=== PATIENT | female | born 1975 | race Caucasian/White ===

== ENCOUNTER 2017-11-22 09:25 | Emergency (ER) | payer BC ==
[2017-11-22 09:35] VITALS: BP 181/90; BMI 38.4
--- NOTE | 2017-11-22 09:51 | DR.GENAD ---
HPI - PCP Primary Care Physician: rosio - HPI Comment HPI Comment: WORSE ONE WEEK STARTED GETTING WORSR. ON BP MED. TOOK BP MED THIS AM. NO FEVER. - Complaint/Symptoms Chief Complaint Doctors Comments: CHEST PAIN AND ELEVATED BP TIMES 2 MONTHS ON AND OFF. Chief Complaint:: patient stated she has been having high blood pressure and chest wall discomfort for two months, but the last week its has gotton worse - Nurses notes reviewed Nurses Notes Review: Yes - Source History Provided: Patient - Mode of Arrival Mode of Arrival: Ambulatory - Timing Onset of Chief Complaint: 10/03/17 - Duration Duration: Constant Duration: Days - Severity Severity: Moderate PMH - PMH Past Medical History: Yes Past Medical History: Hypertension Past Medical History Comment: chronic neck pain Past Surgical History: Yes Surgical History: , INSOLE FILLER Surgery, Ortho Surgery - Family History History of Family Medical Conditions: Yes Family Medical History: MA, Hypertension - Social History Does patient currently use any type of tobacco product: No Have you used tobacco products in the last 12 months: No Type of Tobacco Use: None Does any household member use tobacco: No Alcohol Use: None Do you use any recreational Drugs:: No Lives With: Family Lives Where: Home - infectious screening In the last 2 months have you had wt loss of >10#?: NO Have you had fever, night sweats or hemotysis?: No Have you traveled outside the country in the last 6 months?: No Isolation: Standard ROS - Review of Systems Constitutional: No Symptoms Reported Eyes: No Symptoms Reported ENTM: No Symptoms Reported Respiratoy: No Symptoms Reported Cardiovascular: Chest Pain, Other (ELEVATED BP.) Gastrointestinal/Abdominal: No Symptoms Reported Genitourinary: No Symptoms Reported Neurological: No Symptoms Reported Musculoskeletal: No Symptoms Reported Integumentary: No Symptoms Reported Hematologic/Lymphatic: No Symptoms Reported Endocrine: No Symptoms Reported All Other Systems: Reviewed and Negative PE - Vital Signs Vitals: Temperature 97.9 F Pulse Rate 103 Respiratory Rate 16 Blood Pressure 181/90 O2 Sat by Pulse Oximetry 100 - General Limitations: No Limitations General Appearance: Alert - Head Head Exam: Normal Inspection - Eyes Eye exam: Normal Appearance - ENT ENT Exam: Normal External Ear Exam External Ear Exam: Normal External Inspection TM/Canal Exam: Bilateral Normal Nose Exam: Normal Nose Exam Mouth Exam: Normal Inspection Throat Exam: Normal Inspection - Neck Neck Exam: Normal Inspection - Chest Chest Inspection: Symmetric Chest Wall Rise - Respiratory Respiratory Exam: Normal Lung Sounds Bilat Respiratory Exam: Bilateral Clear to Auscultation - Cardiovascular Cardiovascular Exam: Regular Rate, Normal Rhythm, Normal Heart Sounds - Abdominal Exam Abdominal Exam: Normal Bowel Sounds, Soft. negative: Tenderness - Extremities Extremities Exam: Normal Inspection - Back Back Exam: Normal Inspection - Neurologic Neurological Exam: Alert, Oriented X3 - Psychiatric Psychiatric Exam: Normal Affect, Normal Mood - Skin Skin Exam: Normal Color MDM - Differential Diagnosis Differential Diagnosis: CHEST PAIN, HYPERTENSION Course - Treatment Treatment: SEE ORDERS - Education/Counseling Education/Counseling: Patient, Education Educated On: Diagnosis, Needs for Follow Up ROR - Labs Reviewed Result Diagrams: 11/22/17 10:01 11/22/17 10:01 Laboratory: WBC 7.7 X10^3/uL (3.6-10.0) 11/22/17 10:01 RBC 4.54 X10^6/uL (3.5-5.4) 11/22/17 10:01 Hgb 13.2 g/dL (12.0-16.0) 11/22/17 10:01 Hct 38.5 % (36.0-47.0) 11/22/17 10:01 MCV 84.7 fL (80.0-100.0) 11/22/17 10:01 MCH 28.9 pg (27.0-34.0) 11/22/17 10:01 MCHC 34.2 g/dL (33.0-35.0) 11/22/17 10:01 RDW 13.3 % (11.6-16.5) 11/22/17 10:01 Plt Count 327 X10^3/uL (150.0-450.0) 11/22/17 10:01 MPV 7.2 fL (7.4-11.0) L 11/22/17 10:01 Neut % 65.5 % (42.0-75.0) 11/22/17 10:01 Lymph % 25.9 % (21.0-51.0) 11/22/17 10:01 Meriwether % 6.7 % (0.0-13.0) 11/22/17 10:01 Eos % 1.0 % (0.9-2.9) 11/22/17 10:01 Baso % 0.9 % (0.2-1.0) 11/22/17 10:01 Neut # 5.0 x10^3/uL (2.2-4.8) H 11/22/17 10:01 Lymph # 2.0 X10^3/uL (1.3-2.9) 11/22/17 10:01 Meriwether # 0.5 x10^3/uL (0.3-0.8) 11/22/17 10:01 Eos # 0.1 x10^3/uL (0.0-0.2) 11/22/17 10:01 Baso # 0.1 X10^3/uL (0.0-0.1) 11/22/17 10:01 Absolute Nucleated RBC 0.0 /100WBC 11/22/17 10:01 INR Target Range - 11/22/17 10:01 INR 0.99 (0.8-1.3) 11/22/17 10:01 PTT 26.7 SECONDS (22.9-36.5) 11/22/17 10:01 PTT Comment - 11/22/17 10:01 D-Dimer 331 ng/mL (0-400) 11/22/17 10:01 Sodium 138 mmol/L (136-145) 11/22/17 10:01 Corrected Sodium TNP 11/22/17 10:01 Potassium 3.6 mmol/L (3.5-5.1) 11/22/17 10:01 Chloride 102 mmol/L (98-107) 11/22/17 10:01 Carbon Dioxide 27.9 mmol/L (21-32) 11/22/17 10:01 BUN 14 mg/dL (7-18) 11/22/17 10:01 Creatinine 0.74 mg/dL (0.55-1.02) 11/22/17 10:01 Est GFR (MDRD) Af Amer > 60 (>60) 11/22/17 10:01 Est GFR (MDRD) Non-Af > 60 (>60) 11/22/17 10:01 Glucose 101 mg/dL (65-99) H 11/22/17 10:01 Calcium 9.0 mg/dL (8.5-10.1) 11/22/17 10:01 Corrected Calcium TNP 11/22/17 10:01 Magnesium 1.9 mg/dL (1.7-2.9) 11/22/17 10:01 Total Bilirubin 0.40 mg/dL (0.2-1.0) 11/22/17 10:01 AST 21 Units/L (15-37) 11/22/17 10:01 ALT 38 Units/L (12-78) 11/22/17 10:01 Alkaline Phosphatase 121 Units/L (46-116) H 11/22/17 10:01 Creatine Kinase 87 Units/L (26-192) 11/22/17 10:01 CK-MB (CK-2) 1.7 ng/mL (0-4.0) 11/22/17 10:01 CK/CKMB % Calc 2.0 % (<4) 11/22/17 10:01 Troponin I < 0.02 ng/mL (0-1.5) 11/22/17 10:01 Total Protein 7.9 g/dL (6.4-8.2) 11/22/17 10:01 Albumin 3.7 g/dL (3.4-5.0) 11/22/17 10:01 Globulin 4.2 g/dL (2.5-4.5) 11/22/17 10:01 Albumin/Globulin Ratio 0.9 Ratio (1.1-2.1) L 11/22/17 10:01 - XRAY XRAY Interpreted by: Radiologist XRAY Findings: REPORT DISCUSS WITH PATIENT. - EKG Rhythm: NSR (EKG NOTED) - Diagnosis Discharge Problem: Chest pain Qualifiers: Chest pain type: precordial pain Qualified Code(s): R07.2 - Precordial pain Hypertension Qualifiers: Hypertension type: essential hypertension Qualified Code(s): I10 - Essential ( primary) hypertension - Discharge Plan Condition: Stable Prescriptions: Ibuprofen [MOTRIN TAB 600 MG *] 600 mg PO TID PRN #30 tab PRN Reason: Pain/Inflammation Ranitidine HCl [ZANTAC TAB 150 MG *] 150 mg PO BID #20 tab - Follow ups/Referrals Follow ups/Referrals: Aristides Lloyd [Primary Care Provider] - 3 days - Instructions Instructions: Hypertension, [id number], Chest Pain Observation Additional Instructions: RETURN TO ED IF WORSE.
[2017-11-22 10:10] LABS: BASOPHILS # (AUTO) 0.1 X10^3/uL (0.0-0.1); BASOPHILS % (AUTO) 0.9 % (0.2-1.0); EOSINOPHILS # (AUTO) 0.1 x10^3/uL (0.0-0.2); HEMATOCRIT 38.5 % (36.0-47.0); HEMOGLOBIN 13.2 g/dL (12.0-16.0); LYMPHOCYTES % (AUTO) 25.9 % (21.0-51.0); MEAN CORPUSCULAR HEMOGLOBIN 28.9 pg (27.0-34.0); MEAN CORPUSCULAR HGB CONC 34.2 g/dL (33.0-35.0); MEAN CORPUSCULAR VOLUME 84.7 fL (80.0-100.0); MEAN PLATELET VOLUME 7.2 fL (7.4-11.0); MONOCYTES # (AUTO) 0.5 x10^3/uL (0.3-0.8); MONOCYTES % (AUTO) 6.7 % (0.0-13.0); NEUTROPHILS % (AUTO) 65.5 % (42.0-75.0); PLATELET COUNT 327 X10^3/uL (150.0-450.0); RED BLOOD COUNT 4.54 X10^6/uL (3.5-5.4); RED CELL DISTRIBUTION WIDTH 13.3 % (11.6-16.5); WHITE BLOOD COUNT 7.7 X10^3/uL (3.6-10.0)
[2017-11-22 10:30] LABS: BLOOD UREA NITROGEN 14 mg/dL (7-18); CARBON DIOXIDE 27.9 mmol/L (21-32); CHLORIDE 102 mmol/L (98-107); CREATININE 0.74 mg/dL (0.55-1.02); SODIUM 138 mmol/L (136-145); TROPONIN I < 0.02 ng/mL (0-1.5); eGFR BLACK RACES > 60 (>60); eGFR NON BLACK RACES > 60 (>60)
[2017-11-22 10:35] LABS: ALANINE AMINOTRANSFERASE 38 Units/L (12-78); ALBUMIN 3.7 g/dL (3.4-5.0); ALKALINE PHOSPHATASE 121 Units/L (46-116); ASPARTATE AMINO TRANSFERASE 21 Units/L (15-37); CREATINE KINASE 87 Units/L (26-192); CREATINE KINASE MB 1.7 ng/mL (0-4.0); MAGNESIUM 1.9 mg/dL (1.7-2.9); TOTAL PROTEIN 7.9 g/dL (6.4-8.2)
--- NOTE | 2017-11-22 10:44 | RAD ---
History: Chest pain and left arm numbness Study: Portable AP chest Comparison: None Findings: The lungs are clear and the heart and mediastinum are unremarkable. There is no edema or ef fusion or congestion. Impression: Negative Reported By:
== END 2017-11-22 11:37 | disposition home or self-care (01) ==
LOC: ER 09:38
DX: R07.2 Precordial pain (principal); I10 Essential (primary) hypertension
CPT/HCPCS: 36415; 71045; 80053; 82550; 82553; 83735; 84484; 85025; 85378; 85610; 85730; 86677; 93005; 93010; 99282; 99283

== ENCOUNTER 2021-08-08 10:44 | Observation (INO) ==
[2021-08-08] MEDS ORDERED: ZOFRAN INJ 4 MG VIAL IVP PRN (15:27)
[2021-08-08 16:31] LABS: BASOPHILS # (AUTO) 0.1 X10^3/uL (0.0-0.1); BASOPHILS % (AUTO) 0.4 % (0.2-1.0); EOSINOPHILS % (AUTO) 0.1 % (0.9-2.9); HEMATOCRIT 39.2 % (36.0-47.0); HEMOGLOBIN 13.2 g/dL (12.0-16.0); LYMPHOCYTES # (AUTO) 1.6 X10^3/uL (1.3-2.9); LYMPHOCYTES % (AUTO) 13.3 % (21.0-51.0); MEAN CORPUSCULAR HEMOGLOBIN 28.9 pg (27.0-34.0); MEAN CORPUSCULAR HGB CONC 33.6 g/dL (33.0-35.0); MEAN CORPUSCULAR VOLUME 86.1 fL (80.0-100.0); MEAN PLATELET VOLUME 7.8 fL (7.4-11.0); MONOCYTES # (AUTO) 0.8 x10^3/uL (0.3-0.8); MONOCYTES % (AUTO) 6.5 % (0.0-13.0); NEUTROPHILS # (AUTO) 9.6 x10^3/uL (2.2-4.8); NEUTROPHILS % (AUTO) 79.7 % (42.0-75.0); PLATELET COUNT 271 X10^3/uL (150.0-450.0); RED BLOOD COUNT 4.56 X10^6/uL (3.5-5.4)
[2021-08-08 16:36] LABS: ALANINE AMINOTRANSFERASE 23 Units/L (12-78); ALBUMIN 3.5 g/dL (3.4-5.0); ALKALINE PHOSPHATASE 131 Units/L (46-116); AMYLASE 29 Units/L (25-115); ASPARTATE AMINO TRANSFERASE 16 Units/L (15-37); BLOOD UREA NITROGEN 7 mg/dL (7-18); CALCIUM 8.7 mg/dL (8.5-10.1); CHLORIDE 102 mmol/L (98-107); CREATININE 0.83 mg/dL (0.55-1.02); LIPASE 40 Units/L (73-393); SODIUM 137 mmol/L (136-145); TOTAL PROTEIN 7.8 g/dL (6.4-8.2); eGFR NON BLACK RACES > 60 (>60)
[2021-08-08] MEDS: NS 1000 ML 1,000 ML IV SCH (16:50)
[2021-08-08] MEDS: LEVSIN/MAALOX/LIDOC VISC PO SCH ×3 (16:50→21:33)
[2021-08-08] MEDS: PEPCID 20 MG IV PREMIX* 20 MG/50 ML BAG IV SCH ×2 (16:51→21:27)
[2021-08-08] MEDS: PROTONIX INJ 40 MG VIAL IVP SCH ×2 (16:51→21:34)
[2021-08-08] MEDS: ZOSYN VIAL 3.375 GRAMS 3.375 G in NS 50 ML IV + SPIKE MINIBAG* 50 ML IV SCH ×2 (16:51→22:45)
[2021-08-08] MEDS ORDERED: RESTORIL CAP 15 MG PO ONE (21:56)
[2021-08-08] MEDS: RESTORIL CAP 15 MG PO PRN (22:02)
[2021-08-08] MEDS: DILAUDID INJ IVP PRN (22:14)
[2021-08-09 06:36] LABS: BASOPHILS % (AUTO) 0.3 % (0.2-1.0); EOSINOPHILS % (AUTO) 0.3 % (0.9-2.9); HEMATOCRIT 36.5 % (36.0-47.0); HEMOGLOBIN 12.2 g/dL (12.0-16.0); LYMPHOCYTES # (AUTO) 1.7 X10^3/uL (1.3-2.9); MEAN CORPUSCULAR HEMOGLOBIN 28.7 pg (27.0-34.0); MEAN CORPUSCULAR HGB CONC 33.4 g/dL (33.0-35.0); MONOCYTES # (AUTO) 0.8 x10^3/uL (0.3-0.8); MONOCYTES % (AUTO) 7.3 % (0.0-13.0); NEUTROPHILS # (AUTO) 8.9 x10^3/uL (2.2-4.8); NEUTROPHILS % (AUTO) 77.1 % (42.0-75.0); PLATELET COUNT 251 X10^3/uL (150.0-450.0); RED BLOOD COUNT 4.24 X10^6/uL (3.5-5.4); RED CELL DISTRIBUTION WIDTH 14.8 % (11.6-16.5); WHITE BLOOD COUNT 11.6 X10^3/uL (3.6-10.0)
[2021-08-09 07:01] LABS: ALANINE AMINOTRANSFERASE 19 Units/L (12-78); ALKALINE PHOSPHATASE 116 Units/L (46-116); ASPARTATE AMINO TRANSFERASE 14 Units/L (15-37); BLOOD UREA NITROGEN 7 mg/dL (7-18); CALCIUM 8.2 mg/dL (8.5-10.1); CARBON DIOXIDE 24.3 mmol/L (21-32); CHLORIDE 104 mmol/L (98-107); CREATININE 0.81 mg/dL (0.55-1.02); SODIUM 137 mmol/L (136-145); TOTAL PROTEIN 6.8 g/dL (6.4-8.2); eGFR NON BLACK RACES > 60 (>60)
[2021-08-09] MEDS: ZOSYN VIAL 3.375 GRAMS 3.375 G in NS 50 ML IV + SPIKE MINIBAG* 50 ML IV SCH ×3 (07:27→21:11)
[2021-08-09] MEDS: NS 1000 ML 1,000 ML IV SCH ×3 (07:27→16:30)
[2021-08-09] MEDS: DILAUDID INJ IVP PRN ×4 (07:27→23:30)
[2021-08-09] MEDS: LEVSIN/MAALOX/LIDOC VISC PO SCH ×4 (09:02→20:40)
[2021-08-09] MEDS: PEPCID 20 MG IV PREMIX* 20 MG/50 ML BAG IV SCH ×2 (09:02→20:41)
[2021-08-09] MEDS: PROTONIX INJ 40 MG VIAL IVP SCH ×2 (09:03→20:41)
--- NOTE | 2021-08-09 11:32 | DR.UPDATE ---
H&P Update History and Physical Update: History and Physical reviewed and patient examined. Changes noted: Yes with the following: IS A 46 YEAR OLD PATIENT OF OURS. SHE PRESENTED TO THE OFFICE WITH COMPLAINTS OF DIFFUSE ABDOMINAL PAIN. PATIENT REPORTS THAT PAIN BEGAIN IN THE LOWER ABDOMEN AND RADIATED TO THE LEFT FLANK AND LOWER BACK. ON 08/06, PATIENT BEGAN TO HAVE PAIN TO THE EPIGASTRIC ARE AND RUQ. PAIN STARTED ABOUT A MONTH PRIOR. PAIN IS USUALLY WORSE AFTER EATING. PATIENT ALSO ADMITS TO NAUSEA AND VOMITING. PATIENT REPORTS THAT THERE IS NOTHING THAT REALLY ALLEVIATES THE PAIN. ON EXAMINATION, PATIENT RATED PAIN A 6/10. IT IS DESCRIBED CONSTANT, SHARP, AND STABBING. SHE WAS PRESCRIBED PERCOCET AND BENTYL ON HER LAST VISIT, BUT DENIED IMPROVEMENT IN SYMPTOMS DESPITE COMPLIANCE WITH MEDICATIONS. PATIENT WAS ADMITTED TO THE HOSPITAL FOR FURTHER EVALUATION AND TREATMENT OF INTRACTABLE ABDOMINAL PAIN AND NAUSEA/VOMITING. ON ARRIVAL TO THE HOSPITAL, VITALS WERE 98.0-85-20-99%-127/65. LABS WERE OBTAINED. ABNORMAL LAB VALUES INCLUDED THE FOLLOWING: WBC 12.0, ALK PHOS 131, LIPASE 40. COVID-19 NEGATIVE. SHE WAS STARTED ON NORMAL SALINE AT 80 ML/HR, ZOSYN 3.375G IV TID, PEPCID 20MG IV Q12H, PROTONIX 40MG IV BID, GI COCKTAIL 15ML PO QID, ZOFRAN 4MG IV Q4H PRN, DILAUDID 1MG IV Q4H PRN, AND TORADOL 30MG IV Q6H PRN. WE WILL OBTAIN AN ABDOMEN/PELVIS CT WITH CONTRAST. OTHERWISE, WE PLAN TO FOLLOW UP WITH AM LABS AND CONTINUE TO MONITOR. TIME SPENT ON CLINICAL ASSESSMENT, REVIEWING LABS AND IMAGING, DECISION MAKING, AND DOCUMENTATION GREATER THAN 75 MINUTES. Prescription drug monitoring program results: PDMP reviewed and no concerns identified H&P Reviewed: Yes Patient was examined?: Yes
[2021-08-09 11:52] LABS: BILIRUBIN,URINE NEGATIVE (NEGATIVE); BLOOD/HEMOGLOBIN,URINE NEGATIVE (NEGATIVE); GLUCOSE, URINE NEGATIVE (NEGATIVE); KETONES,URINE NEGATIVE (NEGATIVE); LEUKOCYTE ESTERASE ,URINE NEGATIVE (NEGATIVE); NITRITES,URINE NEGATIVE (NEGATIVE); PROTEIN,URINE 1+ (NEGATIVE); UROBILINOGEN,URINE NORMAL (NORMAL)
[2021-08-09 12:04] LABS: AMORPHOUS SEDIMENT,UR 3+ /HPF (NEGATIVE); APPEARANCE,URINE CLOUDY (CLEAR); BACTERIA,URINE TRACE /HPF (NEGATIVE); COLOR,URINE YELLOW (YELLOW); RBC,URINE 0-2 /HPF (0-3); SQUAMOUS EPITHELIAL CELL,UR RARE /HPF (NEGATIVE)
[2021-08-09 13:35] VITALS: BMI 41.5
[2021-08-09] MEDS: LOVENOX INJ 40 MG SYR SC SCH (17:19)
[2021-08-09] MEDS: TORADOL 30 MG VIAL IVP PRN (20:40)
[2021-08-09] MEDS: RESTORIL CAP 15 MG PO PRN (23:30)
[2021-08-10] MEDS: ZOSYN VIAL 3.375 GRAMS 3.375 G in NS 50 ML IV + SPIKE MINIBAG* 50 ML IV SCH (05:12)
[2021-08-10 06:20] LABS: BASOPHILS # (AUTO) 0.1 X10^3/uL (0.0-0.1); BASOPHILS % (AUTO) 0.8 % (0.2-1.0); EOSINOPHILS # (AUTO) 0.1 x10^3/uL (0.0-0.2); EOSINOPHILS % (AUTO) 0.9 % (0.9-2.9); HEMATOCRIT 33.9 % (36.0-47.0); HEMOGLOBIN 11.4 g/dL (12.0-16.0); LYMPHOCYTES # (AUTO) 1.9 X10^3/uL (1.3-2.9); LYMPHOCYTES % (AUTO) 29.5 % (21.0-51.0); MEAN CORPUSCULAR HEMOGLOBIN 29.2 pg (27.0-34.0); MEAN CORPUSCULAR HGB CONC 33.6 g/dL (33.0-35.0); MEAN PLATELET VOLUME 7.8 fL (7.4-11.0); MONOCYTES # (AUTO) 0.6 x10^3/uL (0.3-0.8); MONOCYTES % (AUTO) 9.2 % (0.0-13.0); NEUTROPHILS # (AUTO) 3.9 x10^3/uL (2.2-4.8); NEUTROPHILS % (AUTO) 59.6 % (42.0-75.0); PLATELET COUNT 221 X10^3/uL (150.0-450.0); RED BLOOD COUNT 3.89 X10^6/uL (3.5-5.4); RED CELL DISTRIBUTION WIDTH 14.9 % (11.6-16.5); WHITE BLOOD COUNT 6.5 X10^3/uL (3.6-10.0)
[2021-08-10 06:31] LABS: ALANINE AMINOTRANSFERASE 19 Units/L (12-78); ALBUMIN 2.6 g/dL (3.4-5.0); ALKALINE PHOSPHATASE 106 Units/L (46-116); ASPARTATE AMINO TRANSFERASE 14 Units/L (15-37); BLOOD UREA NITROGEN 8 mg/dL (7-18); CALCIUM 7.7 mg/dL (8.5-10.1); CARBON DIOXIDE 26.1 mmol/L (21-32); CHLORIDE 106 mmol/L (98-107); COR CA(FOR HYPOALB) 8.8 mg/dL (8.5-10.1); CREATININE 0.73 mg/dL (0.55-1.02); SODIUM 139 mmol/L (136-145); TOTAL PROTEIN 6.2 g/dL (6.4-8.2); eGFR NON BLACK RACES > 60 (>60)
[2021-08-10] MEDS: DILAUDID INJ IVP PRN ×2 (09:01→13:31)
[2021-08-10] MEDS: LEVSIN/MAALOX/LIDOC VISC PO SCH (09:03)
[2021-08-10] MEDS: PROTONIX INJ 40 MG VIAL IVP SCH (09:04)
[2021-08-10] MEDS: PEPCID 20 MG IV PREMIX* 20 MG/50 ML BAG IV SCH (09:06)
[2021-08-10] MEDS: LOVENOX INJ 40 MG SYR SC SCH (09:08)
[2021-08-10] MEDS: TORADOL 30 MG VIAL IVP PRN (11:45)
[2021-08-10 12:46] VITALS: BP 146/73
[2021-08-10] MEDS ORDERED: NS 100 ML IV 100 ML ONE (15:05)
--- NOTE | 2021-08-10 16:40 | CT ---
HISTORYINTRACTABLE ABDOMINAL PAIN, N/VSTUDYABDOMEN/PELVIS WITH CONCOMPARISONCT lumbar spine, May 01, 2021TECHNIQUE[address]ial CT images of the abdomen and pelvis were obtained after the administration of IV contrast, 100 mL Omnipaque 350, and reformatted into coronal and sagittal planes for further evaluation. Enteric contrast was administered.Radiation dose: 1560.00 mGy-cm total DLPFINDINGSLung bases are clear.Stomach appears normal.Solid visceral organs of the upper abdomen are unremarkable.Gallbladder appears normal with no biliary dilatation.Homogeneous enhancement of the kidneys without hydronephrosis or hydroureter.Unremarkable appearance of the urinary bladder.Low-attenuation collection within the endometrial canal measuring 4.7 x 8 x 6.4 cm.Few scattered colonic diverticula without diverticulitis.No evidence of acute appendicitis.No pneumoperitoneum.No significant fluid collection.No adenopathy.No acute osseous abnormality.Posterior spinal fusion hardware in place from L4-S1. Right fusion gillian is fractured as discussed on the CT lumbar spine study from May 01, 2021.IMPRESSION1. No acute intra-abdominal abnormality detected.2. Low-attenuation collection within the endometrial canal measuring 4.7 x 8 x 6.4 cm. Recommend further characterization with pelvic ultrasound.Electronically signed by: Zachary Eng (Aug 10, 2021 16:39:08)
== END 2021-08-10 17:50 | disposition home or self-care (01) ==
LOC: OBS → MED/SURG 14:39
PROVIDERS: ADMIT Internal Medicine; ATTEND Internal Medicine
DX: R11.2 Nausea with vomiting, unspecified; Z20.822 Contact with and (suspected) exposure to COVID-19; R10.84 Generalized abdominal pain; K21.9 Gastro-esophageal reflux disease without esophagitis; I10 Essential (primary) hypertension